=== PATIENT | male | born 1950 | race Caucasian/White ===

== ENCOUNTER 2016-08-05 15:49 | Emergency (ER) | payer OTHER ==
[~2016-08-05] VITALS: Ht 177.8 cm; Wt 96.6 kg
[2016-08-05 17:57] VITALS: BP 129/88
== END 2016-08-05 17:57 | disposition home or self-care (01) ==
LOC: ED 15:49
DX: S61.411A Laceration without foreign body of right hand, initial encounter (principal); S61.512A Laceration without foreign body of left wrist, initial encounter; R20.0 Anesthesia of skin; G43.909 Migraine, unspecified, not intractable, without status migrainosus; Z79.899 Other long term (current) drug therapy; X58.XXXA Exposure to other specified factors, initial encounter; Y93.89 Activity, other specified; Y92.89 Other specified places as the place of occurrence of the external cause; Y99.8 Other external cause status
CPT/HCPCS: 90715; J2001